=== PATIENT | female | born 1995 | race Caucasian/White ===

== ENCOUNTER 2016-11-02 20:17 | Emergency (ER) | payer BC ==
[~2016-11-02] VITALS: Ht 160 cm; Wt 87.0 kg
[2016-11-02 21:05] LABS: ADD MIUA? YES; BILIRUBIN NEGATIVE; BLOOD SMALL; COLOR YELLOW ((YELLOW)); GLUCOSE (STRIP) NEGATIVE; KETONES 5; LEUKOCYTES NEGATIVE; NITRITE NEGATIVE; PROTEIN (STRIP) 30; SPECIFIC GRAVITY 1.026 (1.000-1.030); UROBILINOGEN 0.2 MG/DL (0.2-1.0)
[2016-11-02 21:18] LABS: HEMATOCRIT 43.3 % (36.0-46.0); MCH 27.8 PG (29.0-34.0); MCHC 33.5 G/DL (30.0-36.0); MCV 83.1 FL (83-99); MEAN PLAT.VOLUME 8.8 uM^3 (9.5-12.4); PLATELET COUNT 370 K/uL (156-360); RBC DIS.WIDTH-CV 12.6 % (11.8-14.6); RED BLOOD COUNT 5.21 M/uL (3.80-5.20); WHITE BLOOD COUNT 7.3 K/uL (4.1-10.2)
[2016-11-02 21:26] LABS: CHLORIDE 106 mEq/L (99-109); POTASSIUM 3.6 mEq/L (3.7-5.4); SODIUM 144 mEq/L (136-147)
[2016-11-02 21:28] LABS: GLUCOSE 105 mg/dL (70-99)
[2016-11-02 21:28] LABS: BACTERIA 2+ /HPF; EPITHELIAL CELLS 3+ /HPF; MUCUS 2+ /LPF; RED BLOOD CELLS 0-5 /HPF (0-5); UCUL ADDED? NO; WHITE BLOOD CELLS 0-5 /HPF (0-5)
[2016-11-02 21:30] LABS: ANION GAP 11 MEQ/L (2-14)
[2016-11-02 21:32] LABS: ALKALINE PHOSPHATASE 77 IU/L (3-129); GFR ESTIMATE (CALCULATED) > 59 mL/min/
[2016-11-02 21:33] LABS: UREA NITROGEN (BUN) 7 mg/dL (9-23)
[2016-11-02 21:35] LABS: LIPASE 230 U/L (1.0-51.0)
[2016-11-02 21:41] LABS: QUANTITATIVE HCG < 4.0 MIU/ML
[2016-11-02] MEDS ORDERED: ZOFRAN ODT8 MG PO (22:38)
[2016-11-02] MEDS ORDERED: AUBRA1 EACH PO (22:39)
[2016-11-02] MEDS ORDERED: ZOFRAN4 MG PO (22:49)
[2016-11-02] MEDS ORDERED: NORCO 5/3251 TABLET PO (22:49)
[2016-11-02 22:53] VITALS: BP 126/80
== END 2016-11-02 23:03 | disposition home or self-care (01) ==
LOC: EME 20:17 → RME 20:17
DX: K80.20 Calculus of gallbladder without cholecystitis without obstruction (principal); R74.8 Abnormal levels of other serum enzymes
CPT/HCPCS: 76705; 80053; 81003; 83690; 84702; 85027; 99281; 99285; J1885; J2405; J3010; J7030

== ENCOUNTER 2016-12-16 07:53 | Day surgery (SDC) | payer BC ==
[~2016-12-16] VITALS: Ht 160 cm; Wt 85.7 kg
[~2016-12-16 07:53] MED LIST: AUBRA1 EACH PO; NORCO 5/3251 TABLET PO; TYLENOL REGULA325 MG PO; ZOFRAN ODT8 MG PO; ZOFRAN4 MG PO; ZYRTEC10 M2 PO
[2016-12-16 08:50] VITALS: BP 121/70
[2016-12-16 09:52] LABS: INTERNAL CONTROL VALID? YES
[2016-12-16] MEDS ORDERED: NORCO 5/3251 TABLET PO (12:09)
[2016-12-16 13:14] VITALS: BP 118/81
[2016-12-16 14:14] VITALS: BP 140/54
== END 2016-12-16 14:40 | disposition home or self-care (01) ==
LOC: SDC 07:53
PROVIDERS: Surgery
PROC: 0FT44ZZ Resection of Gallbladder, Percutaneous Endoscopic Approach (ICD-10-PCS; principal; 2016-12-16)
DX: K80.10 Calculus of gallbladder with chronic cholecystitis without obstruction (principal); E16.2 Hypoglycemia, unspecified; E66.3 Overweight; Z68.33 Body mass index [BMI] 33.0-33.9, adult; Z77.22 Contact with and (suspected) exposure to environmental tobacco smoke (acute) (chronic); Z82.3 Family history of stroke; Z82.49 Family history of ischemic heart disease and other diseases of the circulatory system; Z83.49 Family history of other endocrine, nutritional and metabolic diseases; Z80.1 Family history of malignant neoplasm of trachea, bronchus and lung; Z83.3 Family history of diabetes mellitus
CPT/HCPCS: 84703; 88304; J0131; J0330; J1100; J1885; J2250; J2405; J2710; J2765; J3010